=== PATIENT | male | born 1995 | race Caucasian/White ===

== ENCOUNTER 2017-08-28 02:11 | Emergency (ER) | payer BC, OTHER ==
[2017-08-28] MEDS ORDERED: IBUPROFEN 800 MG TABLET PO STA (02:30)
[2017-08-28] MEDS ORDERED: cefTRIAXone 1 GM in SODIUM CHLORIDE 0.9% MINIBAG 100 ML IV STA (02:30)
--- NOTE | 2017-08-28 02:57 | ED Physician Documentation ---
PD HPI LOWER EXT INJURY - Stated complaint Stated Complaint: RT 5TH TOE INJURY/PX/SWELLING - Chief complaint Chief Complaint: Trauma Ext - History obtained from History obtained from: Patient - History of Present Illness PD HPI LOW EXT INJURY LOCATION: Right, Toe Type of injury: Blunt / blow Timing - onset: How many weeks ago (1) Worsened by: Moving, Palpating Associated symptoms: Swelling, Discolored Similar symptoms before: Has not had sx before - Additional information Additional information: The patient is a 22-year-old male who presents with pain, redness, and swelling of his right little toe. He kicked a rock accidentally 1 week ago while walking along the beach in [place], injuring his right little toe. For the past 3 days he has noticed increasing redness, swelling, and pain of the toe. Prior to arrival tonight he felt chills. He denies shortness of breath, abdominal pain, or dysuria. Review of Systems Constitutional: reports: Chills Nose: denies: Congestion Throat: denies: Sore throat Respiratory: reports: Cough (Slight). denies: Dyspnea GI: denies: Abdominal Pain, Nausea, Vomiting : denies: Dysuria Skin: denies: Rash Musculoskeletal: denies: Extremity pain (Right little toe.) Neurologic: denies: Focal weakness, Numbness, Headache PD PAST MEDICAL HISTORY - Past Medical History Past Medical History: No Endocrine/Autoimmune: None - Past Surgical History Past Surgical History: No - Present Medications Home Medications: Ambulatory Orders Medication Instructions Recorded Confirmed cephALEXin [Cephalexin] 500 mg PO QID #28 tablet 08/28/17 - Allergies Allergies/Adverse Reactions: Allergies Allergy/AdvReac Type Severity Reaction Status Date / Time No Known Drug Allergies Allergy Verified 08/28/17 02:24 - Social History Does the pt smoke?: No Smoking Status: Never smoker Does the pt drink ETOH?: Yes Does the pt have substance abuse?: No - Immunizations Immunizations are current?: Yes - POLST Patient has POLST: No PD ED PE NORMAL - Vitals Vital signs reviewed: Yes (Low grade fever, and borderline hypertension initially.) - General General: Alert and oriented X 3, Well developed/nourished - HEENT HEENT: Atraumatic - Cardiac Cardiac: RRR - Respiratory Respiratory: No respiratory distress, Clear bilaterally - Derm Derm: Normal color - Extremities Extremities: No calf tenderness / cord, Other (There is swelling and erythema of the right little toe, with lymphangitic streaking up the dorsum of the foot. There is slight warmth and associated tenderness to palpation of the little toe. Distal neurovascular is intact.) - Neuro Neuro: Alert and oriented X 3, No motor deficit, Normal speech Results - Vitals Vitals: Vital Signs - 24 hr 08/28/17 08/28/17 02:14 03:28 Temperature 38.2 C H 38.0 C H Heart Rate 93 84 Respiratory 16 15 Rate Blood Pressure 140/59 H 132/49 H O2 Saturation 97 98 Oxygen O2 Source Room air - Rads (name of study) Right little toe Radiology: Prelim report reviewed, EMP read contemporaneously, See rad report ( Subcutaneous gas in the distal right fifth toe, compatible with soft tissue infection. No evidence of radiopaque foreign body or osteomyelitis.) Procedures - Abscess I&D (location) Right little toe Preparation: Betadine, Lidocaine 1% Incision: Incised with scalpel, Needle aspiration, Purulent drainage, Culture obtained Other: Pt tolerated well, Dressing applied, Antibiotic prescribed PD MEDICAL DECISION MAKING - ED course Complexity details: reviewed results, re-evaluated patient, considered differential, d/w patient, d/w family ED course: The patient's presentation is significant for abscess with lymphangitis of the right little toe. There is no evidence of osteomyelitis or foreign body on radiographic examination. Treatment in the emergency department included incision and drainage after local anesthetic with 1% lidocaine. Few drops of purulent debris were expressed, and wound culture was obtained. Ceftriaxone 1 g was administered IV, and ibuprofen 800 mg orally. He is being discharged with prescription for cephalexin. I discussed with him and his father the expected course of illness, antibiotic treatment and outpatient follow-up, as well as potentially worrisome signs or symptoms that should prompt reevaluation in the emergency department. Departure - Departure Disposition: 01 Home, Self Care Clinical Impression: Abscess of toe of right foot, Acute lymphangitis Condition: Stable Instructions: ED Abscess IandD Prescriptions: cephALEXin [Cephalexin] 500 mg PO QID #28 tablet Comments: Keep your right foot elevated as much of the time as possible. Take cephalexin 4 times daily as prescribed. You can use ibuprofen, up to 800 mg 3 times daily, for pain or fever. Follow up with your primary physician this week. Call to schedule appointment. Return to the emergency department if you develop increasing red streaking, fever with shaking chills, or otherwise worsening symptoms Forms: Activity restrictions
--- NOTE | 2017-08-28 03:29 | XRAY Report ---
EXAM: RIGHT TOE RADIOGRAPHY EXAM DATE: 08/28/2017 03:14 AM. CLINICAL HISTORY: Injury, and now infection, right little toe. ?FB. COMPARISON: 01/22/2010. TECHNIQUE: 3 views. FINDINGS: Bones: Normal. No fracture or bone lesion. Joints: Normal. No subluxations. Soft Tissues: There is subcutaneous gas in the distal end of the right fifth toe, compatible with sof t tissue infection. No radiopaque foreign body is seen. IMPRESSION: Subcutaneous gas in the distal right fifth toe, compatible with soft tissue infection. No evidence of radiopaque foreign body or osteomyelitis. [facility] Referring Provider Line: [phone] SITE ID: [id number]
[2017-08-28 04:00] VITALS: BP 126/62
== END 2017-08-28 03:55 | disposition home or self-care (01) ==
LOC: ED 02:11
DX: L02.611 Cutaneous abscess of right foot (principal); L03.91 Acute lymphangitis, unspecified
CPT/HCPCS: 10060; 73660; 87070; 87205; 96365; 99283; 99284; A9270; 87077; 87181

== ENCOUNTER 2018-12-02 10:13 | Emergency (ER) | payer OTHER ==
[2018-12-02 10:19] VITALS: BP 144/93
[2018-12-02] MEDS ORDERED: predniSONE 20 MG TABLET PO STA (10:36)
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
== END 2018-12-02 10:41 | disposition home or self-care (01) ==
LOC: ED 10:13
DX: T63.443A Toxic effect of venom of bees, assault, initial encounter (principal); M79.89 Other specified soft tissue disorders
CPT/HCPCS: 99282; 99284; J7512